=== PATIENT | male | born 1975 | race Two or more races ===

== ENCOUNTER 2016-03-30 23:03 | Emergency (ER) | payer OTHER ==
[2016-03-31] MEDS ORDERED: ONDANSETRON 4 MG TAB.RAPDIS PO ONE (00:11)
[2016-03-31] MEDS ORDERED: ACETAMINOPHEN 325 MG TABLET PO ONE (00:11)
--- NOTE | 2016-03-31 00:15 | ER Document Report ---
ED Medical Screen (RME) - General Chief Complaint: Headache Stated Complaint: HEADACHE Notes: Patient is a 41-year-old male that comes emergency department for chief complaint of headache, nausea, upper abdominal pain, and a strange taste in his mouth. Patient denies vomiting, fever, head injury, neck pain. PMH HTN, HLD, TIA. Patient denies any weakness, numbness, speech slurring, visual changes. TRAVEL OUTSIDE OF THE [place] IN LAST 30 DAYS: No - Related Data Allergies/Adverse Reactions: No Known Allergies Allergy (Verified 01/13/16 18:35) Past Medical History - Social History Chew tobacco use (# tins/day): No Frequency of alcohol use: None Drug Abuse: None - Past Medical History Cardiac Medical History: Reports: Hx Hypertension Endocrine Medical History: Reports: Hx Diabetes Mellitus Type 2 Renal/ Medical History: Denies: Hx Peritoneal Dialysis Physical Exam - Vital signs Vitals: Temp Pulse Resp BP 97.8 F 63 18 148/77 H 03/30/16 23:24 03/30/16 23:24 03/30/16 23:24 03/30/16 23:24 - Abdominal Tenderness: Tender - complains with palpation of epigastric area, exam limited by chair - Neurological Neuro grossly intact: Yes Cognition: Normal Orientation: AAOx4 Marta Coma Scale Eye Opening: Spontaneous [place] Coma Scale Verbal: Oriented [place] Coma Scale Motor: Obeys Commands [place] Coma Scale Total: 15 Speech: Normal Cranial nerves: Normal Cerebellar coordination: Normal Motor strength normal: LUE, RUE, LLE, RLE Additional motor exam normals: Equal superintendent menagerie Course - Vital Signs Vital signs: Temp Pulse Resp BP Pulse Ox 97.8 F 63 18 148/77 H 03/30/16 23:24 03/30/16 23:24 03/30/16 23:24 03/30/16 23:24
[2016-03-31] MEDS ORDERED: ACETAMINOPHEN 325 MG TABLET ONE (01:11)
[2016-03-31 03:28] LABS: ALANINE AMINOTRANSFERASE 35 U/L (21-72); ALBUMIN 4.3 g/dL (3.5-5.0); ALKALINE PHOSPHATASE 57 U/L (38-126); ANION GAP 13 (5-19); ASPARTATE AMINO TRANSFERASE 20 U/L (17-59); BILIRUBIN,TOTAL 1.2 mg/dL (0.2-1.3); BLOOD UREA NITROGEN 25 mg/dL (7-20); CALCIUM 9.5 mg/dL (8.4-10.2); CARBON DIOXIDE 22 mmol/L (22-30); CHLORIDE 105 mmol/L (98-107); CREATININE RESULT 0.82 mg/dL (0.52-1.25); GLUCOSE 94 mg/dL (75-110); LIPASE 61.5 U/L (23-300); POTASSIUM 4.6 mmol/L (3.6-5.0); SODIUM 140.4 mmol/L (137-145); TOTAL PROTEIN 7.7 g/dL (6.3-8.2)
[2016-03-31 03:36] LABS: HEMATOCRIT 42.4 % (37.9-51.0); HEMOGLOBIN 14.5 g/dL (13.5-17.0); HGB HCT DIFFERENCE 1.1; MEAN CORPUSCULAR HEMOGLOBIN 28.7 pg (27.0-33.4); MEAN CORPUSCULAR HGB CONC 34.3 g/dL (32.0-36.0); MEAN CORPUSCULAR VOLUME 84 fl (80-97); RED BLOOD COUNT 5.06 10^6/uL (4.35-5.55); RED CELL DISTRIBUTION WIDTH 12.9 % (11.5-14.0); WHITE BLOOD COUNT 7.5 10^3/uL (4.0-10.5)
[2016-03-31 04:01] LABS: BAND NEUTROPHILS % (MANUAL) 1 % (3-5); BASOPHILS % (MANUAL) 1 % (0-2); EOSINOPHILS % (MANUAL) 8 % (0-6); LYMPHOCYTES % (MANUAL) 59 % (13-45); TOTAL CELLS COUNTED 100
[2016-03-31 04:03] LABS: OVALOCYTES SLIGHT; POIKILOCYTOSIS SLIGHT; SCHISTOCYTES SLIGHT; TOXIC GRANULATION 1+
--- NOTE | 2016-03-31 05:49 | ER Document Report ---
ED General - General Chief Complaint: Headache Stated Complaint: HEADACHE Mode of Arrival: Ambulatory Information source: Patient Notes: 41-year-old male presents with complaints of 2 day duration of hot cold sensation in his head. Patient denies any fevers or chills nausea vomiting or diarrhea. Patient denies any neurological deficits. Patient also notes some itching inside his head. TRAVEL OUTSIDE OF THE [place] IN LAST 30 DAYS: No - HPI Onset: Other - 2 day duration Onset/Duration: Persistent Quality of pain: No pain Severity: Mild Pain Level: Denies Associated symptoms: Other. denies: Headache Exacerbated by: Denies Relieved by: Denies Similar symptoms previously: No Recently seen / treated by doctor: No - Related Data Allergies/Adverse Reactions: No Known Allergies Allergy (Verified 01/13/16 18:35) Past Medical History - Social History Smoking Status: Never Smoker Cigarette use (# per day): No Chew tobacco use (# tins/day): No Smoking Education Provided: No Frequency of alcohol use: None Drug Abuse: None Family History: Reviewed & Not Pertinent Patient has suicidal ideation: No Patient has homicidal ideation: No - Past Medical History Cardiac Medical History: Reports: Hx Hypertension Endocrine Medical History: Reports: Hx Diabetes Mellitus Type 2 Renal/ Medical History: Denies: Hx Peritoneal Dialysis Review of Systems - Review of Systems Notes: REVIEW OF SYSTEMS: CONSTITUTIONAL : Denies fever, chills, or sweats. Denies recent illness. EENT: Denies eye, ear, throat, or mouth pain or symptoms. Denies nasal or sinus congestion or discharge. Denies throat, tongue, or mouth swelling or difficulty swallowing. CARDIOVASCULAR: Denies chest pain. Denies palpitations or racing or irregular heart beat. Denies ankle edema. RESPIRATORY: Denies cough, cold, or chest congestion. Denies shortness of breath, difficulty breathing, or wheezing. GASTROINTESTINAL: Denies abdominal pain or distention. Denies nausea, vomiting , or diarrhea. Denies blood in vomitus, stools, or per rectum. Denies black, tarry stools. Denies constipation. GENITOURINARY: Denies difficulty urinating, painful urination, burning, frequency, blood in urine, or discharge. MUSCULOSKELETAL: Denies back or neck pain or stiffness. Denies joint pain or swelling. SKIN: Denies rash, lesions or sores. HEMATOLOGIC : Denies easy bruising or bleeding. LYMPHATIC: Denies swollen, enlarged glands. NEUROLOGICAL: Denies confusion or altered mental status. Denies passing out or loss of consciousness. Denies dizziness or lightheadedness. Denies headache. Denies weakness or paralysis or loss of use of either side. Denies problems with gait or speech. Denies sensory loss, numbness, or tingling. Denies seizures. Admits to itching and hot cold sensation in head PSYCHIATRIC: Denies anxiety or stress. Denies depression, suicidal ideation, or homicidal ideation. ALL OTHER SYSTEMS REVIEWED AND NEGATIVE. Dictation was performed using [employer] recognition software PHYSICAL EXAMINATION: GENERAL: Well-appearing, well-nourished and in no acute distress. HEAD: Atraumatic, normocephalic. EYES: Pupils equal round and reactive to light, extraocular movements intact, sclera anicteric, conjunctiva are normal. ENT: Nares patent, oropharynx clear without exudates. Moist mucous membranes. NECK: Normal range of motion, supple without lymphadenopathy LUNGS: Breath sounds clear to auscultation bilaterally and equal. No wheezes rales or rhonchi. HEART: Regular rate and rhythm without murmurs ABDOMEN: Soft, nontender, nondistended abdomen. No guarding, no rebound. No masses appreciated. Musculoskeletal: Normal range of motion, no pitting or edema. No cyanosis. NEUROLOGICAL: Cranial nerves grossly intact. Normal speech, normal gait. Normal sensory, motor exams PSYCH: Normal mood, normal affect. SKIN: Warm, Dry, normal turgor, no rashes or lesions noted. Physical Exam - Vital signs Vitals: Temp Pulse Resp BP 97.8 F 63 18 148/77 H 03/30/16 23:24 03/30/16 23:24 03/30/16 23:24 03/30/16 23:24 Course - Re-evaluation Re-evalutation: 03/31/16 05:49 pt notes hold and cold sensation with itching inside his head, I do not beleive this is stroke like symptoms given he has no neuro deficits, but will order ct head ot evaluate 03/31/16 06:33 There is no scalp irritation noted 03/31/16 06:47 CT of the head was negative no acute abnormalities noted, I do not believe there is any life-threatening issues After performing a Medical Screening Examination, I estimate there is LOW risk for ACUTE GLAUCOMA, TEMPORAL ARTERITIS, MENINGITIS, INCRANIAL HEMORRHAGE, or ISCHEMIC STROKE thus I consider the discharge disposition reasonable. The patient and I have discussed the diagnosis and risks, and we agree with discharging home with close follow-up with the understanding that symptoms and presentations can change. We also discussed returning to the Emergency Department immediately if new or worsening symptoms occur. We have discussed the symptoms which are most concerning (e.g., changing or worsening symptoms, new numbness or weakness, vomiting, fever) that necessitate immediate return. - Vital Signs Vital signs: Temp Pulse Resp BP Pulse Ox 97.8 F 63 18 148/77 H 03/30/16 23:24 03/30/16 23:24 03/30/16 23:24 03/30/16 23:24 - Laboratory Result Diagrams: 03/31/16 03:03 03/31/16 03:03 Laboratory results interpreted by me: 03/31/16 03/31/16 03:03 03:03 Seg Neuts % (Manual) 15 L Band Neutrophils % 1 L Lymphocytes % (Manual) 59 H Eosinophils % (Manual) 8 H Abs Neuts (Manual) 1.2 L Abs Lymphs (Manual) 5.0 H BUN 25 H - Diagnostic Test Radiology reviewed: Image reviewed, Reports reviewed Discharge - Discharge Clinical Impression: hot cold sensation Condition: Stable Disposition: HOME, SELF-CARE Instructions: Headache ([facility]) Referrals: LAURIE KNOX MD [ACTIVE STAFF] - Follow up tomorrow
[2016-03-31] MEDS ORDERED: DIPHENHYDRAMINE HCL 50 MG CAPSULE PO ONE (07:08)
[2016-03-31 07:14] VITALS: BP 130/89
== END 2016-03-31 07:15 | disposition home or self-care (01) ==
LOC: ER 23:03
DX: R20.9 Unspecified disturbances of skin sensation (principal); R51 Headache
CPT/HCPCS: 99284; 36415; 83690; 85025; 80053; 70450; S0119

== ENCOUNTER 2017-01-13 00:32 | Emergency (ER) | payer OTHER ==
--- NOTE | 2017-01-13 01:21 | ER Document Report ---
ED General - General Chief Complaint: Headache Stated Complaint: WEAKNESS IN BODY Time Seen by Provider: 01/13/17 01:05 Mode of Arrival: Ambulatory Information source: Patient, Relative - Daughter Notes: 42-year-old male presents to ED today, accompanied by spouse and daughter, with multiple vague complaints. Reports intermittent symptoms of "pressure" in the back of his head, feeling anxious "jumpy and shaky" causing insomnia, generalized malaise, chills, and nausea since yesterday. Reports tolerating normal diet at last meal (dinner). Upon further interview, patient admits he has had similar symptoms previously, and has been evaluated in the ED and by primary care provider but not given specific answers. Currently denies additional associated symptoms including change in mental status, dizziness, weakness, vision changes, vomiting, abdominal pain, chest pain, shortness of breath, or changes in/concerns with bladder or bowel habits. Does endorse DM2, for which he takes Metformin twice daily. Reports he checks his blood glucose irregularly but normally ranges 110s-130s. Believes symptoms may be related to BG. Additionally, reports mild swelling in both lower extremities but admits this is a chronic issue and he has discussed this with his PCM (Nicole) who believes symptoms are related to DM, and recommended compression socks, which he does not regularly wear. TRAVEL OUTSIDE OF THE [place] IN LAST 30 DAYS: No - Related Data Allergies/Adverse Reactions: No Known Allergies Allergy (Verified 01/13/16 18:35) Past Medical History - General Information source: Patient, Relative - Daughter - Social History Smoking Status: Former Smoker Family History: Reviewed & Not Pertinent - Past Medical History Cardiac Medical History: Reports: Hx Hypercholesterolemia, Hx Hypertension Endocrine Medical History: Reports: Hx Diabetes Mellitus Type 2 Renal/ Medical History: Denies: Hx Peritoneal Dialysis - Immunizations Hx Diphtheria, Pertussis, Tetanus Vaccination: Yes Review of Systems - Review of Systems Constitutional: See HPI EENT: No symptoms reported Cardiovascular: See HPI Respiratory: See HPI Gastrointestinal: See HPI Genitourinary: No symptoms reported Male Genitourinary: No symptoms reported Musculoskeletal: See HPI Skin: No symptoms reported Hematologic/Lymphatic: No symptoms reported Neurological/Psychological: See HPI Physical Exam - Vital signs Vitals: Temp Pulse Resp BP Pulse Ox 97.6 F 59 L 16 146/87 H 98 01/13/17 00:43 01/13/17 00:43 01/13/17 00:43 01/13/17 00:43 01/13/17 00:43 - Notes Notes: PHYSICAL EXAMINATION: GENERAL: Well-appearing and in no acute distress. Alert, oriented, and cooperative with exam. HEAD: Atraumatic, normocephalic. EYES: Pupils equal round and reactive to light, extraocular movements intact, sclera anicteric, conjunctiva are normal. NECK: Normal range of motion, nontender LUNGS: CTAB and equal. No wheezes rales or rhonchi. HEART/CHEST: Regular rate and rhythm without murmurs. No tenderness to palpation. ABDOMEN: Soft, nondistended, no tenderness, normoactive bowel sounds x 4. No guarding, no rebound BACK: No vertebral tenderness, normal ROM EXTREMITIES: Normal range of motion, no cyanosis, normal temperature, color, pulses, capillary refill, mild bilateral non-pitting edema to lower extremities NEUROLOGICAL: Normal speech, normal gait, cranial nerves grossly intact, normal stength/sensory/motor exams. PSYCH: Normal mood, normal affect. SKIN: Warm, Dry, normal turgor, no rashes or lesions noted Course - Re-evaluation Re-evalutation: Labwork and urinalysis reviewed - BUN mildly elevated 22, blood glucose 111 Patient presents with multiple vague complaints that did not appear to be concerning for any acute life-threatening pathology. Vitals are within normal limits at triage and at time of discharge. Physical examination is unremarkable. Patient has tolerated oral intake without difficulty. Patient was not noted to be in distress at any point during their ER visit. At this time, based on the reassuring evaluation, I do not suspect an acute MA, pulmonary embolus, aortic dissection, acute intra-abdominal pathology, stroke, or sepsis. Will discharge with return precautions and follow-up recommendations. Verbal discharge instructions given a the bedside and opportunity for questions given. As patient reported improvement in symptoms following administration of Vistaril, will discharge home with short term prescription to be used as needed at bedtime. Medication warnings reviewed. Patient is in agreement with this plan and has verbalized understanding of return precautions and the need for primary care follow-up in the next 24-72 hours. - Vital Signs Vital signs: Temp Pulse Resp BP Pulse Ox 97.4 F 49 L 14 129/84 H 98 01/13/17 04:48 01/13/17 04:48 01/13/17 04:48 01/13/17 04:48 01/13/17 04:48 - Laboratory Result Diagrams: 01/13/17 01:20 01/13/17 01:20 Laboratory results interpreted by me: 01/13/17 01/13/17 01:20 01:20 Seg Neutrophils % 34.3 L Lymphocytes % 46.8 H Eosinophils % 7.9 H BUN 22 H Glucose 111 H Discharge - Discharge Clinical Impression: Headache Qualifiers: Headache type: unspecified Headache chronicity pattern: unspecified pattern Intractability: not intractable Qualified Code(s): R51 - Headache Condition: Stable Disposition: HOME, SELF-CARE Instructions: Headache ([facility]) Additional Instructions: Return immediately for any new or worsening symptoms. Follow up with primary care provider, call later today to make follow up appointment. Prescriptions: Hydroxyzine Pamoate [Vistaril 50 mg Capsule] 50 mg PO QHS PRN #15 capsule PRN Reason: Forms: Elevated Blood Pressure Referrals: STELLA MATT MD [Primary Care Provider] - Follow up as needed
[2017-01-13 02:05] LABS: ABSOLUTE BASOPHILS # (AUTO) 0.1 10^3/uL (0.0-0.2); ABSOLUTE EOSINOPHILS # (AUTO) 0.6 10^3/uL (0.0-0.6); ABSOLUTE LYMPHOCYTES (AUTO) 3.6 10^3/uL (0.5-4.7); ABSOLUTE MONOCYTES (AUTO) 0.7 10^3/uL (0.1-1.4); ABSOLUTE NEUT (AUTO) 2.6 10^3/uL (1.7-8.2); BASOPHILS % (AUTO) 1.4 % (0-2); EOSINOPHILS % (AUTO) 7.9 % (0-6); HEMATOCRIT 43.1 % (37.9-51.0); HEMOGLOBIN 15.1 g/dL (13.5-17.0); HGB HCT DIFFERENCE 2.2; LYMPHOCYTES % (AUTO) 46.8 % (13-45); MEAN CORPUSCULAR HEMOGLOBIN 28.9 pg (27.0-33.4); MEAN CORPUSCULAR HGB CONC 35.1 g/dL (32.0-36.0); MEAN CORPUSCULAR VOLUME 82 fl (80-97); MONOCYTES % (AUTO) 9.6 % (3-13); RED BLOOD COUNT 5.23 10^6/uL (4.35-5.55); RED CELL DISTRIBUTION WIDTH 13.6 % (11.5-14.0); SEGMENTED NEUTROPHILS % (AUTO) 34.3 % (42-78); WHITE BLOOD COUNT 7.7 10^3/uL (4.0-10.5)
[2017-01-13] MEDS ORDERED: HYDROXYZINE PAMOATE 50 MG CAPSULE PO ONE (02:10)
[2017-01-13 02:12] LABS: APPEARANCE,URINE CLEAR; BILIRUBIN,URINE NEGATIVE (NEGATIVE); GLUCOSE, URINE NEGATIVE (NEGATIVE); KETONES,URINE NEGATIVE (NEGATIVE); LEUKOCYTE ESTERASE,URINE NEGATIVE (NEGATIVE); NITRITE,URINE NEGATIVE (NEGATIVE); PROTEIN,URINE NEGATIVE (NEGATIVE); URINE SPECIFIC GRAVITY 1.016; UROBILINOGEN,URINE NEGATIVE mg/dL (<2.0)
[2017-01-13 02:12] LABS: ALANINE AMINOTRANSFERASE 42 U/L (21-72); ALBUMIN 4.5 g/dL (3.5-5.0); ALKALINE PHOSPHATASE 68 U/L (38-126); ANION GAP 14 (5-19); ASPARTATE AMINO TRANSFERASE 20 U/L (17-59); BILIRUBIN,DIRECT 0.4 mg/dL (0.0-0.4); BILIRUBIN,TOTAL 1.3 mg/dL (0.2-1.3); BLOOD UREA NITROGEN 22 mg/dL (7-20); CALCIUM 9.4 mg/dL (8.4-10.2); CARBON DIOXIDE 24 mmol/L (22-30); CHLORIDE 105 mmol/L (98-107); CREATININE RESULT 1.03 mg/dL (0.52-1.25); GLUCOSE 111 mg/dL (75-110); POTASSIUM 3.9 mmol/L (3.6-5.0); SODIUM 143.4 mmol/L (137-145); TOTAL PROTEIN 7.5 g/dL (6.3-8.2)
[2017-01-13 04:48] VITALS: BP 129/84
[2017-01-13] MEDS ORDERED: HYDROXYZINE PAMOATE 25 MG CAPSULE (4 CAP/ER DISP) PO SCH (22:00)
== END 2017-01-13 04:48 | disposition home or self-care (01) ==
LOC: ER 00:32
DX: R51 Headache (principal); R53.1 Weakness; F41.9 Anxiety disorder, unspecified; G47.00 Insomnia, unspecified; Z87.891 Personal history of nicotine dependence
CPT/HCPCS: 36415; 80053; 81001; 85025; 99284

== ENCOUNTER 2017-02-09 21:09 | Observation (INO) | payer SELFPAY ==
--- NOTE | 2017-02-09 21:52 | EKG REPORT ---
SEVERITY:- NORMAL ECG - SINUS RHYTHM : Confirmed by: Pantera Humphrey 09-Feb-2017 21:52:16
--- NOTE | 2017-02-09 22:10 | ER Document Report ---
ED General - General Chief Complaint: High Blood Pressure Stated Complaint: HIGH BLOOD PRESSURE Time Seen by Provider: 02/09/17 22:10 Mode of Arrival: Ambulatory Information source: Patient Notes: (Martii used for translation) 42 yo male pt. of [facility] here with and daughter was not well with posterior occipital headache, head feels heavy, something making pressure inside head, that radiates to bilateral temples at 6 pm now level 4/5, notices it more when I stop working. Similar sx. yesterday but resolved. Started several months ago, has been here for it before and told nothing was wrong. Gets bilateral facial tingling with it. Got home from work and took his blood pressure was 188 systolic. He was hospitalized 03-26 here for similar symptoms, and several other visits for headache. [place] aware of symptoms. Has not seen neurologist. Also c/o right sided chest pain that lasted 10 minutes during pivot in lobby and intermittently since 6 pm, left sided pinching pain at 9 pm lasted few seconds, intermittent for 1 year. No SOB, No nausea, no fever, no v/d. They are wondering if the paint fumes ( wears mask) causes the headache. TRAVEL OUTSIDE OF THE [place] IN LAST 30 DAYS: No - Related Data Allergies/Adverse Reactions: No Known Allergies Allergy (Verified 01/13/16 18:35) Past Medical History - General Information source: Patient - Social History Smoking Status: Former Smoker Frequency of alcohol use: None Drug Abuse: None Occupation: painting Lives with: Family Family History: Reviewed & Not Pertinent - Past Medical History Cardiac Medical History: Reports: Hx Hypercholesterolemia, Hx Hypertension Endocrine Medical History: Reports: Hx Diabetes Mellitus Type 2 Renal/ Medical History: Denies: Hx Peritoneal Dialysis Surgical Hx: Negative - Immunizations Hx Diphtheria, Pertussis, Tetanus Vaccination: Yes Review of Systems - Review of Systems Constitutional: No symptoms reported EENT: No symptoms reported Cardiovascular: See HPI Respiratory: No symptoms reported Gastrointestinal: No symptoms reported Genitourinary: No symptoms reported Male Genitourinary: No symptoms reported Musculoskeletal: No symptoms reported Skin: No symptoms reported Hematologic/Lymphatic: No symptoms reported Neurological/Psychological: See HPI Physical Exam - Vital signs Vitals: Temp Pulse Resp BP Pulse Ox 98 F 66 18 161/87 H 99 02/09/17 21:10 02/09/17 21:10 12/14/17 21:10 02/09/17 21:10 02/09/17 21:10 Interpretation: Normal - General General appearance: Appears well, Alert In distress: None - HEENT Head: Normocephalic, Atraumatic Eyes: Normal Conjunctiva: Normal Extraocular movements intact: Yes Pupils: PERRL Tympanic membrane: Normal Mucous membranes: Normal Pharynx: Normal Neck: Supple. No: Lymphadenopathy - Respiratory Respiratory status: No respiratory distress Chest status: Nontender Breath sounds: Normal Chest palpation: Normal - Cardiovascular Rhythm: Regular Heart sounds: Normal auscultation Murmur: No - Abdominal Inspection: Normal Distension: No distension Bowel sounds: Normal Tenderness: Nontender. No: Tender Organomegaly: No organomegaly. No: Hepatomegaly, Splenomegaly - Back Back: Normal, Nontender. No: CVA tenderness - Extremities General upper extremity: Normal inspection, Nontender, Normal color, Normal ROM , Normal temperature General lower extremity: Normal inspection, Nontender, Normal color, Normal ROM , Normal temperature, Normal weight bearing. No: Bessy's sign Calf: Nontender - Neurological Neuro grossly intact: Yes Cognition: Normal Orientation: AAOx4 Marta Coma Scale Eye Opening: Spontaneous [place] Coma Scale Verbal: Oriented [place]a Coma Scale Motor: Obeys Commands [place] Coma Scale Total: 15 Speech: Normal Motor strength normal: LUE, RUE, LLE, RLE Sensory: Normal - Psychological Associated symptoms: Normal affect, Normal mood - Skin Skin Temperature: Warm Skin Moisture: Dry Skin Color: Normal Course - Re-evaluation Re-evalutation: 02/10/17 00:34 pulse 50, SB, no headache or chest pain. Labs negative. CT negative. BP 104/70 02/10/17 00:35 02/10/17 00:[address] campos who rec. admission for chest pain. I spoke with dr hein who will admit observation telemetry. - Vital Signs Vital signs: Temp Pulse Resp BP Pulse Ox 98 F 66 17 103/69 94 02/09/17 21:10 02/09/17 21:10 02/10/17 00:01 02/10/17 00:01 02/10/17 00:01 - Laboratory Result Diagrams: 02/09/17 23:00 02/09/17 23:00 Laboratory results interpreted by me: 02/09/17 02/09/17 23:00 23:00 Seg Neutrophils % 33.4 L Lymphocytes % 49.6 H Eosinophils % 6.2 H Creatine Kinase 192 H - EKG Interpretation by Me EKG shows normal: Sinus rhythm Rate: Normal Rhythm: NSR When compared to previous EKG there are: No significant change - old ekg 2015 Discharge - Discharge Clinical Impression: chest pain Headache Qualifiers: Headache type: unspecified Headache chronicity pattern: unspecified pattern Intractability: not intractable Qualified Code(s): R51 - Headache Condition: Stable Disposition: ADMITTED OBSERVATION Admitting Provider: Hospitalist Unit Admitted: Telemetry Referrals: STELLA MATT MD [Primary Care Provider] - Follow up as needed
[2017-02-09] MEDS ORDERED: ASPIRIN 81 MG TABLET, CHEWABLE PO ONE (22:14)
[2017-02-09] MEDS ORDERED: PROCHLORPERAZINE EDISYLATE INJ 10 MG/2 ML VIAL IV ONE (22:38)
[2017-02-09] MEDS ORDERED: DIPHENHYDRAMINE HCL 50 MG/ML VIAL IV ONE (22:38)
[2017-02-09] MEDS ORDERED: NORMAL SALINE 1000 ML 1,000 ML IV ONE (22:38)
[2017-02-09] MEDS ORDERED: KETOROLAC TROMETHAMINE INJ/PF 30 MG/1 ML SDV IV ONE (22:39)
[2017-02-09 23:29] LABS: ABSOLUTE BASOPHILS # (AUTO) 0.1 10^3/uL (0.0-0.2); ABSOLUTE EOSINOPHILS # (AUTO) 0.5 10^3/uL (0.0-0.6); ABSOLUTE MONOCYTES (AUTO) 0.8 10^3/uL (0.1-1.4); ABSOLUTE NEUT (AUTO) 2.7 10^3/uL (1.7-8.2); BASOPHILS % (AUTO) 0.7 % (0-2); EOSINOPHILS % (AUTO) 6.2 % (0-6); HEMATOCRIT 45.3 % (37.9-51.0); HEMOGLOBIN 15.5 g/dL (13.5-17.0); LYMPHOCYTES % (AUTO) 49.6 % (13-45); MEAN CORPUSCULAR HEMOGLOBIN 28.1 pg (27.0-33.4); MEAN CORPUSCULAR HGB CONC 34.1 g/dL (32.0-36.0); MEAN CORPUSCULAR VOLUME 82 fl (80-97); MONOCYTES % (AUTO) 10.1 % (3-13); PLATELET COUNT 268 10^3/uL (150-450); RED CELL DISTRIBUTION WIDTH 13.8 % (11.5-14.0); SEGMENTED NEUTROPHILS % (AUTO) 33.4 % (42-78); TOTAL CELLS COUNTED % (AUTO) 100 %
[2017-02-09 23:45] LABS: ALANINE AMINOTRANSFERASE 60 U/L (21-72); ALBUMIN 4.8 g/dL (3.5-5.0); ALKALINE PHOSPHATASE 72 U/L (38-126); ANION GAP 14 (5-19); ASPARTATE AMINO TRANSFERASE 26 U/L (17-59); BILIRUBIN,DIRECT 0.3 mg/dL (0.0-0.4); BLOOD UREA NITROGEN 16 mg/dL (7-20); CARBON DIOXIDE 27 mmol/L (22-30); CHLORIDE 102 mmol/L (98-107); CREATINE KINASE 192 U/L (55-170); GLUCOSE 87 mg/dL (75-110); POTASSIUM 4.4 mmol/L (3.6-5.0); SODIUM 142.8 mmol/L (137-145); TOTAL PROTEIN 8.2 g/dL (6.3-8.2)
[2017-02-09 23:59] LABS: TROPONIN I < 0.012 ng/mL
--- NOTE | 2017-02-10 00:09 | RADIOLOGY REPORT (SQ) ---
EXAM DESCRIPTION: CT HEAD WITHOUT CLINICAL HISTORY: right sided headache COMPARISON: 03/31/2016 TECHNIQUE: Axial CT of the head obtained from the skull apex to the skull base without contrast. FINDINGS: No acute intracranial hemorrhage identified. No mass, mass effect, shift of the midline, abnormal extra-axial fluid collection or CT evidence of acute ischemic change identified. The ventricular system is unremarkable. No acute abnormalities of the supratentorial white matter, basal ganglia, cerebellum, or brainstem. The visualized paranasal sinuses and the mastoids are clear. No skull fracture identified. Visualized orbits and globes are unremarkable. DLP:1162.97 mGy-cm IMPRESSION: 1. No acute intracranial abnormality identified. This exam was performed according to our departmental dose-optimization program, which includes automated exposure control, adjustment of the mA and/or kV according to patient size and/or use of iterative reconstruction technique.
--- NOTE | 2017-02-10 00:16 | RADIOLOGY REPORT (SQ) ---
EXAM DESCRIPTION: CHEST SINGLE VIEW CLINICAL HISTORY: right sided chest pain COMPARISON: 01/13/2016 FINDINGS: Single frontal view of the chest. The cardiomediastinal silhouette has normal size and contour. No consolidation, pneumothorax, or pleural effusion. No displaced rib fractures identified. Upper abdominal soft tissues are unremarkable. Leads overlie the chest. IMPRESSION: 1. No acute pulmonary process identified.
[2017-02-10] MEDS ORDERED: MAG HYDROX/AL HYDROX/SIMETH SUSP 30 ML UDCUP PO PRN (00:44)
[2017-02-10] MEDS ORDERED: NITROGLYCERIN 0.4 MG/TAB 25 TAB/BOTTLE SL PRN (00:44)
[2017-02-10] MEDS ORDERED: LANSOPRAZOLE 15 MG TAB.RAP.DR PO ONE (01:45)
--- NOTE | 2017-02-10 02:02 | PDOC H&P ---
History of Present Illness Admission Date/PCP: 02/10/17 01:12 STELLA MATT MD History of Present Illness: ANN FLANAGAN is a 42 year old male with a history of HTN and DM who presented to the emergency department with complaints of headache. Incidentally he complained of chest pain. He reports it was pinches on the left and right side of his chest that lasts about 2-3 minutes and would come and go. Patient is currently quite lethargic and history is obtained obtained from his family at the bedside. Patient received a migraine cocktail and has had improvement of his headache. Patient was initially found to be mildly hypertensive and currently has been mildly hypotensive and is receiving fluid bolus. He is referred to hospital service for evaluation of his chest pain. Past Medical History Cardiac Medical History: Reports: Hyperlipidema, Hypertension Endocrine Medical History: Reports: Diabetes Mellitus Type 2 Past Surgical History Past Surgical History: Reports: None Social History Lives with: Family Smoking Status: Former Smoker Frequency of Alcohol Use: None Hx Recreational Drug Use: No Hx Prescription Drug Abuse: No - Advance Directive Resuscitation Status: Full Code Surrogate healthcare decision maker:: Family History Family History: CAD, DM Parental Family History Reviewed: Yes Children Family History Reviewed: Yes Sibling(s) Family History Reviewed.: Yes Medication/Allergy Home Medications: Amlodipine Besylate 1 tab PO DAILY 03/26/15 Metformin HCl 1 tab PO BID 03/26/15 Amlodipine Besylate [Norvasc 5 mg Tablet] 5 mg PO Q12 #60 tablet 03/27/15 Aspirin [Aspirin 81 mg Chewable Tablet] 81 mg PO DAILY #30 tab.chew 03/27/15 Glimepiride [Amaryl 4 mg Tablet] 4 mg PO BIDBS #60 tablet 03/27/15 Simvastatin [Zocor 40 mg Tablet] 40 mg PO QHS #30 tablet 03/27/15 Hydroxyzine Pamoate [Vistaril 50 mg Capsule] 50 mg PO QHS PRN #15 capsule Allergies/Adverse Reactions: No Known Allergies Allergy (Verified 01/13/16 18:35) Review of Systems Constitutional: ABSENT: chills, fever(s), headache(s), weight gain, weight loss Eyes: ABSENT: visual disturbances Ears: ABSENT: hearing changes Nose, Mouth, and Throat: PRESENT: headache(s) Cardiovascular: PRESENT: chest pain. ABSENT: dyspnea on exertion, edema, orthropnea, palpitations Respiratory: ABSENT: cough, hemoptysis Gastrointestinal: ABSENT: abdominal pain, constipation, diarrhea, hematemesis, hematochezia, nausea, vomiting Genitourinary: ABSENT: dysuria, hematuria Musculoskeletal: ABSENT: joint swelling Integumentary: ABSENT: rash, wounds Neurological: ABSENT: abnormal gait, abnormal speech, confusion, dizziness, focal weakness, syncope Psychiatric: ABSENT: anxiety, depression, homidical ideation, suicidal ideation Endocrine: ABSENT: cold intolerance, heat intolerance, polydipsia, polyuria Hematologic/Lymphatic: ABSENT: easy bleeding, easy bruising Physical Exam Vital Signs: Temp Pulse Resp BP Pulse Ox 98 F 66 17 103/69 94 02/09/17 21:10 02/09/17 21:10 02/10/17 00:01 02/10/17 00:01 02/10/17 00:01 General appearance: PRESENT: no acute distress, well-developed, well-nourished Head exam: PRESENT: atraumatic, normocephalic Eye exam: PRESENT: conjunctival injection, conjunctiva pink, EOMI, PERRLA. ABSENT: scleral icterus Ear exam: PRESENT: normal external ear exam Mouth exam: PRESENT: dry mucosa, tongue midline Neck exam: ABSENT: carotid bruit, JVD, lymphadenopathy, thyromegaly Respiratory exam: PRESENT: clear to auscultation sudhakar. ABSENT: rales, rhonchi, wheezes Cardiovascular exam: PRESENT: RRR. ABSENT: diastolic murmur, rubs, systolic murmur Pulses: PRESENT: normal dorsalis pedis pul Vascular exam: PRESENT: normal capillary refill GI/Abdominal exam: PRESENT: normal bowel sounds, soft. ABSENT: distended, guarding, mass, organolmegaly, rebound, tenderness Rectal exam: PRESENT: deferred Extremities exam: PRESENT: full ROM. ABSENT: calf tenderness, clubbing, pedal edema Neurological exam: PRESENT: alert, awake, oriented to person, oriented to place , oriented to time, oriented to situation, CN II-XII grossly intact. ABSENT: motor sensory deficit Psychiatric exam: PRESENT: appropriate affect, normal mood. ABSENT: homicidal ideation, suicidal ideation Skin exam: PRESENT: dry, intact, warm. ABSENT: cyanosis, rash Results Laboratory Results: 02/09/17 02/09/17 02/09/17 23:00 23:00 23:00 WBC 8.0 Hgb 15.5 Eosinophils % 6.2 H Creatinine 0.72 Creatine Kinase 192 H CK-MB (CK-2) 2.00 Troponin I < 0.012 Impressions: Chest X-Ray 02/09/17 22:14 IMPRESSION: 1. No acute pulmonary process identified. Head CT 02/09/17 22:14 IMPRESSION: 1. No acute intracranial abnormality identified. This exam was performed according to our departmental dose-optimization program, which includes automated exposure control, adjustment of the mA and/or kV according to patient size and/or use of iterative reconstruction technique. Assessment & Plan - Diagnosis (1) Chest pain Qualifiers: Chest pain type: unspecified Qualified Code(s): R07.9 - Chest pain, unspecified Is this a current diagnosis for this admission?: Yes Plan: Place patient on telemetry observation. Monitor for arrhythmia or ST segment changes. Initiate patient on Lipitor, oxygen, nitroglycerin, and aspirin. Serial cardiac enzymes every 6 hours. Testing lipid panel in the morning. Will obtain stress test tomorrow due to patient's risk factors and concerning history of chest pain. (2) HTN (hypertension) Qualifiers: Hypertension type: essential hypertension Qualified Code(s): I10 - Essential (primary) hypertension Is this a current diagnosis for this admission?: Yes Plan: Patient on Norvasc (3) Diabetes mellitus Qualifiers: Diabetes mellitus type: type 2 Diabetes mellitus complication status: with unspecified complications Diabetes mellitus intermediate insulin use: without exterminator use Qualified Code(s): E11.8 - Type 2 diabetes mellitus with unspecified complications Is this a current diagnosis for this admission?: Yes (4) Headache Qualifiers: Headache type: tension-type Headache chronicity pattern: unspecified pattern Intractability: not intractable Qualified Code(s): G44.209 - Tension -type headache, unspecified, not intractable Is this a current diagnosis for this admission?: Yes Plan: Improved (5) Obesity (BMI 30.0-34.9) Is this a current diagnosis for this admission?: Yes Plan: Patient is advised to engage actively in weight loss and increase activity as tolerated with his primary care physician. - Time Time Spent: 30 to 50 Minutes Medications reviewed and adjusted accordingly: Yes Anticipated discharge: Home Within: within 48 hours - Inpatient Certification Based on my medical assessment, after consideration of the patient's comorbidities, presenting symptoms, or acuity I expect that the services needed warrant INPATIENT care.: No I certify that my determination is in accordance with my understanding of Medicare's requirements for reasonable and necessary INPATIENT services [42 CFR 412.3e].: No Medical Necessity: Need For Continuous Telemetry Monitoring Post Hospital Care: D/C Junior Account Executive Documentation
[2017-02-10] MEDS ORDERED: LOSARTAN POTASSIUM 25 MG TABLET PO SCH (10:00)
[2017-02-10] MEDS ORDERED: ASPIRIN 325 MG TABLET, ENT COATED PO SCH (10:00)
[2017-02-10 16:32] VITALS: BP 118/71
--- NOTE | 2017-02-10 17:11 | PDOC DISCHARGE SUMMARY ---
General - Admit/Disc Date/PCP Admission Date/Primary Care Provider: 02/10/17 01:12 STELLA MATT MD Discharge Date: 02/10/17 - Additional Information Resuscitation Status: Full Code Home Medications: Amlodipine Besylate [Norvasc 10 mg Tablet] 10 mg PO DAILY 02/10/17 Lovastatin 40 mg PO Q12 02/10/17 Metformin HCl [Glucophage] 500 mg PO BID 02/10/17 Pantoprazole Sodium [Protonix] 40 mg PO DAILY 02/10/17 History of Present Illness History of Present Illness: ANN FLANAGAN is a 42 year old male admitted to the observation service for chest pain. Please see details of the patient's admission as outlined below by the admitting physician. History of Present Illness Admission Date/PCP: 02/10/17 01:12 STELLA MATT MD History of Present Illness: ANN FLANAGAN is a 42 year old male with a history of HTN and DM who presented to the emergency department with complaints of headache. Incidentally he complained of chest pain. He reports it was pinches on the left and right side of his chest that lasts about 2-3 minutes and would come and go. Patient is currently quite lethargic and history is obtained obtained from his family at the bedside. Patient received a migraine cocktail and has had improvement of his headache. Patient was initially found to be mildly hypertensive and currently has been mildly hypotensive and is receiving fluid bolus. He is referred to hospital service for evaluation of his chest pain. Hospital Course Hospital Course: Patient was admitted to the hospital. Troponins were negative 3. When I went to go and see the patient he stated that his chest pain had completely resolved. He said it was right-sided. On examination there was no reproducible pain. Patient works as a painter supervisor with spray paint. He is certain that he absolutely did not push pull or lift inappropriately. He states that the pain actually is better the more that he works but when he stops that is when it happens. The patient denies any history of acid reflux, gastric ulcers , or mechanical injury. Patient however does admit to panic attacks. He states that that has not been an issue with him for a while. Usually when he feels anxious he is just goes to sleep and tries to sleep through his feelings. The patient would really like to be discharged today. I have offered him the opportunity to stay for a stress test. He states that he feels that he can get in with his regular doctor and have this performed as an outpatient. This is more than reasonable. The patient will be discharged he will need to follow-up with PCP Physical Exam Vital Signs: Temp Pulse Resp BP Pulse Ox 98.2 F 58 L 20 118/71 96 02/10/17 16:00 02/10/17 16:00 02/10/17 16:00 02/10/17 16:00 02/10/17 16:00 Intake & Output 02/09/17 02/10/17 02/11/17 06:59 06:59 06:59 Intake Total 0 Output Total 0 Balance 0 Weight 93.6 kg GENERAL: This is a well-developed and nourished appearing male sitting on the side of his bed currently in no acute distress. HEART: Regular rate and rhythm. No murmurs, rubs or gallops. LUNGS: Clear to auscultation bilaterally with equal rise and fall of the chest. ABDOMEN: Soft, nontender, nondistended with normoactive bowel sounds EXTREMETIES: No clubbing, cyanosis or edema. 2+ peripheral pulses bilaterally. NEURO: Awake, alert and oriented 3. Cranial nerves II through XII are grossly intact. Results Laboratory Results: 02/10/17 02/10/17 05:00 11:15 Troponin I < 0.012 < 0.012 Impressions: Chest X-Ray 02/09/17 22:14 IMPRESSION: 1. No acute pulmonary process identified. Head CT 02/09/17 22:14 IMPRESSION: 1. No acute intracranial abnormality identified. This exam was performed according to our departmental dose-optimization program, which includes automated exposure control, adjustment of the mA and/or kV according to patient size and/or use of iterative reconstruction technique. Qualifiers PATEINT BEING DISCHARGED WITH ANY OF THE FOLLOWING DIAGNOSIS?: No Plan Time Spent: Less than 30 Minutes
[2017-02-10] MEDS ORDERED: ATORVASTATIN CALCIUM 40 MG TABLET PO SCH (22:00)
== END 2017-02-10 18:21 | disposition home or self-care (01) ==
LOC: ER 21:09 → EH 02-10 01:12 → 4S 02-10 02:30
PROVIDERS: ADMIT Family Medicine; ATTEND Family Medicine
DX: R07.9 Chest pain, unspecified (principal); I10 Essential (primary) hypertension; E11.8 Type 2 diabetes mellitus with unspecified complications; G44.209 Tension-type headache, unspecified, not intractable; E66.9 Obesity, unspecified; I95.9 Hypotension, unspecified; R20.2 Paresthesia of skin; E78.5 Hyperlipidemia, unspecified; Z79.899 Other long term (current) drug therapy; Z87.891 Personal history of nicotine dependence; Z82.49 Family history of ischemic heart disease and other diseases of the circulatory system; Z83.3 Family history of diabetes mellitus; Z79.82 Long term (current) use of aspirin; Z79.84 Long term (current) use of oral hypoglycemic drugs; Z57.5 Occupational exposure to toxic agents in other industries; Z68.33 Body mass index [BMI] 33.0-33.9, adult
CPT/HCPCS: 93005; 99285; 96361; 96374; 96375; 36415; 82553; 82550; 85025; 80053; 84484 ×2; 71010; 70450; 93010; G0378 ×2; J1200; J1885; J0780; J7030

== ENCOUNTER → 2017-04-03 | Outpatient (CLI) | payer OTHER ==
--- NOTE | 2017-04-03 11:26 | RADIOLOGY REPORT (SQ) ---
EXAM DESCRIPTION: U/S ABDOMEN COMPLETE W/O DOP COMPLETED DATE/TIME: 04/03/2017 10:47 am REASON FOR STUDY: R10.11 RIGHT UPPER QUADRANT PAIN R10.11 RIGHT UPPER QUADRANT PAIN COMPARISON: None. TECHNIQUE: Dynamic and static grayscale images acquired of the abdomen and recorded on PACS. Additio nal selected color Doppler and spectral images recorded. LIMITATIONS: Body habitus, midline bowel gas FINDINGS: PANCREAS: Midline pancreas unremarkable LIVER: No masses. Echotexture normal. LIVER VASCULATURE: Normal directional flow of the main portal vein and hepatic veins. GALLBLADDER: No shadowing gallstones. There are 2 polyps in the gallbladder, each about 5 mm in diam eter. No gallbladder wall thickening or pericholecystic fluid. ULTRASOUND-DETECTED MARTINEZ'S SIGN: Negative. INTRAHEPATIC DUCTS AND COMMON DUCT: CBD and intrahepatic ducts normal caliber. No filling defects. INFERIOR VENA CAVA: Normal flow. AORTA: Upper abdominal aorta not well seen. Mid and distal abdominal aorta normal caliber RIGHT KIDNEY: Normal size. Normal echogenicity. No solid or suspicious masses. No hydronephros is. No calcifications. LEFT KIDNEY: Normal size. Normal echogenicity. No solid or suspicious masses. No hydronephrosi s. No calcifications. SPLEEN: Normal size. No solid masses. PERITONEAL AND PLEURAL SPACES: No ascites or effusions. OTHER: No other significant finding. IMPRESSION: 5 mm gallbladder polyps. No gallstones, gallbladder wall thickening or pericholecystic fluid. Negative sonographic Martinez's sign TECHNICAL DOCUMENTATION: JOB ID: [id number] 2016 [employer]- All Rights Reserved
== END ==
LOC: RAD 10:23
PROVIDERS: ATTEND Physician Assistant
DX: R10.11 Right upper quadrant pain (principal)
CPT/HCPCS: 76700

== ENCOUNTER → 2017-04-27 | Outpatient (CLI) | payer OTHER ==
--- NOTE | 2017-04-27 08:15 | RADIOLOGY REPORT (SQ) ---
EXAM DESCRIPTION: MRI CERVICAL SPINE WITHOUT COMPLETED DATE/TIME: 04/27/2017 8:00 am REASON FOR STUDY: CERVICAL RADICULOPATHY (M54.12), CERVICALGIA (M54.2) M54.2 CERVICALGIA M54.12 RA DICULOPATHY, CERVICAL REGION COMPARISON: None. TECHNIQUE: Sagittal and Axial imaging includes T1, T2, STIR and gradient echo sequences. LIMITATIONS: None. FINDINGS: ALIGNMENT: Normal. VERTEBRAE: Intact. BONE MARROW: Normal. No marrow replacement or reactive changes. DISCS: Normal. No significant abnormal signal or loss of height. HARDWARE: None in the spine. CORD AND BASE OF BRAIN: Normal in size and signal intensity. SOFT TISSUES: No soft tissue masses. C1-C2: No significant spinal stenosis. C2-C3: No significant spinal stenosis or exit foraminal stenosis. C3-C4: No significant spinal stenosis or exit foraminal stenosis. C4-C5: No significant spinal stenosis or exit foraminal stenosis. C5-C6: No significant spinal stenosis or exit foraminal stenosis. C6-C7: No significant spinal stenosis or exit foraminal stenosis. C7-T1: No significant spinal stenosis or exit foraminal stenosis. UPPER THORACIC: Incompletely imaged. No significant spinal stenosis or exit foraminal stenosis. OTHER: No other significant finding. IMPRESSION: NORMAL MRI CERVICAL SPINE. TECHNICAL DOCUMENTATION: JOB ID: [id number]- All Rights Reserved Reading location - IP/workstation name: [email or web address]
== END ==
LOC: RAD 07:19
PROVIDERS: ATTEND Psychiatry & Neurology Neurology
DX: M54.2 Cervicalgia (principal); M54.12 Radiculopathy, cervical region
CPT/HCPCS: 72141